=== PATIENT | female | born 1965 | race Caucasian/White ===

== ENCOUNTER 2017-09-01 07:10 | Inpatient (IN) | payer OTHER ==
[2017-09-01] VITALS (7 sets, daily range): BP systolic 92–126; BP diastolic 58–67; PULSE 79–114; TEMP 98–98.5
[~2017-09-01] VITALS: Ht 160 cm; Wt 36.1 kg
[2017-09-01] MEDS ORDERED: [UNRECOGNIZED DRUG - OTHER] PO (07:21)
[2017-09-01 07:48] LABS: HEMATOCRIT 45.3 % (37.0-47.0); HEMOGLOBIN 15.4 g/dl (12.5-16.0); MEAN CELL VOLUME 87 fl (80.0-100.0); MEAN CORPUSCULAR HEMOGLOBIN 30 pg (27.0-31.0); MEAN CORPUSCULAR HGB CONC 34 g/dl (33.0-37.0); MEAN PLATELET VOLUME 9.3 fl (7.4-10.4); PLATELET COUNT 291 K/mm3 (130-400); RED BLOOD COUNT 5.22 M/mm3 (4.10-5.30); REDCELL DISTRIBUTION WIDTH-CV 13.5 % (11.5-14.5)
[2017-09-01 07:51] LABS: ALANINE AMINOTRANSFERASE 22 U/L (9-52); ALBUMIN 4.1 gm/dL (3.5-5.0); ALKALINE PHOSPHATASE 96 U/L (50-136); ANION GAP 14 mmol/L (7-16); AST,SGOT 22 U/L (15-37); BILIRUBIN,TOTAL 0.6 mg/dL (0.0-1.0); BLOOD UREA NITROGEN 15 mg/dL (7-17); CALCIUM 9.8 mg/dL (8.4-10.2); CARBON DIOXIDE 24 mmol/L (22-30); CHLORIDE 98 mmol/L (98-107); CREATININE, serum 0.92 mg/dL (0.52-1.25); GLUCOSE 137 mg/dL (74-106); LIPASE 14 U/L (23-300); POTASSIUM 4.7 mmol/L (3.4-5.0); SODIUM 136 mmol/L (137-145); TOTAL PROTEIN 8.2 gm/dL (6.4-8.2)
[2017-09-01 08:04] LABS: TROPONIN-I < 0.012 ng/mL (0.000-0.034)
[2017-09-01 08:16] LABS: BAND 9 % (0-10); EOSINOPHIL 1 % (0-4); LYMPHOCYTE 12 % (20.0-51.0); NEUTROPHILS 70 % (42.0-75.2)
[2017-09-01 08:17] LABS: PLATELET ESTIMATE NORMAL (NORMAL)
[2017-09-01 08:22] LABS: C-REACTIVE PROTEIN 20.3 mg/dL (0.0-0.9)
[2017-09-01 10:13] LABS: ARTERIAL BLD GAS O2 SATURATION 96.2 % (92-100); ARTERIAL BLD GAS TCO2 CT 21.7; ARTERIAL BLOOD GAS HCO3 20.7 meq/L (22-26); ARTERIAL BLOOD GAS PO2 80.7 mmHg (80-100); ARTERIAL BLOOD GAS pH 7.42 (7.35-7.45)
[2017-09-01 15:22] LABS: PH 6 (5-8); SQUAMOUS EPITHELIAL 0-2 /hpf; URINE APPEARANCE Clear; URINE BACTERIA None Seen /hpf; URINE BILIRUBIN Negative (NEGATIVE); URINE BLOOD 1+ (NEGATIVE); URINE COLOR Yellow; URINE GLUCOSE 1+ (NEGATIVE); URINE KETONE Negative (NEGATIVE); URINE LEUKOCYTE ESTERASE Negative (NEGATIVE); URINE NITRATE Negative (NEGATIVE); URINE PROTEIN(semi-quant) Negative (NEGATIVE); URINE RBC None Seen /hpf; URINE UROBILINOGEN Negative (NEGATIVE)
[2017-09-01 15:29] LABS: COLLECTION METHOD CLEAN CATCH
[2017-09-02 03:54] VITALS: BP 128/65; PULSE 84; TEMP 98.4
[2017-09-02] MEDS ORDERED: ASPIRIN 81M81 MG/TA2 PO (07:39)
[2017-09-02 07:40] VITALS: BP 132/70; PULSE 78; TEMP 98.1
[2017-09-02 07:40] LABS: BASO % 0.2 % (0.0-2.0); EOS # 0.1 (0.0-0.7); EOS % 0.8 % (0-4.0); GRAN # 13.5 (1.4-6.5); GRAN % 77.6 % (42.2-75.2); LYMPH # 2.2 (1.2-3.4); LYMPH % 12.5 % (20.0-51.0); MEAN CELL VOLUME 89 fl (80.0-100.0); MEAN CORPUSCULAR HGB CONC 33 g/dl (33.0-37.0); MEAN PLATELET VOLUME 9.7 fl (7.4-10.4); MONO # 1.5 (0.1-0.6); MONO % 8.4 % (1.7-9.3); PLATELET COUNT 239 K/mm3 (130-400); RED BLOOD COUNT 3.78 M/mm3 (4.10-5.30); REDCELL DISTRIBUTION WIDTH-CV 13.9 % (11.5-14.5)
[2017-09-02 07:45] LABS: HEMATOCRIT 33.8 % (37.0-47.0); HEMOGLOBIN 11.2 g/dl (12.5-16.0); MEAN CORPUSCULAR HEMOGLOBIN 30 pg (27.0-31.0)
[2017-09-02 07:54] LABS: CALCIUM 8.5 mg/dL (8.4-10.2); CREATININE, serum 0.69 mg/dL (0.52-1.25); POTASSIUM 3.9 mmol/L (3.4-5.0)
[2017-09-02 11:37] VITALS: BP 116/62; PULSE 112; TEMP 98.2
[2017-09-02 15:32] VITALS: BP 127/68; PULSE 87; TEMP 98.2
[2017-09-02 18:43] VITALS: BP 122/69; PULSE 91; TEMP 98.3
[2017-09-03 03:29] VITALS: BP 122/67; PULSE 86; TEMP 97.9
[2017-09-03 07:58] LABS: BASO % 0.1 % (0.0-2.0); EOS % 0.3 % (0-4.0); GRAN # 10.3 (1.4-6.5); GRAN % 76.3 % (42.2-75.2); HEMOGLOBIN 11.7 g/dl (12.5-16.0); LYMPH # 2.1 (1.2-3.4); LYMPH % 15.8 % (20.0-51.0); MEAN CELL VOLUME 89 fl (80.0-100.0); MEAN CORPUSCULAR HEMOGLOBIN 29 pg (27.0-31.0); MEAN CORPUSCULAR HGB CONC 33 g/dl (33.0-37.0); MEAN PLATELET VOLUME 9.7 fl (7.4-10.4); MONO # 0.9 (0.1-0.6); MONO % 6.9 % (1.7-9.3); PLATELET COUNT 269 K/mm3 (130-400); RED BLOOD COUNT 4.03 M/mm3 (4.10-5.30)
[2017-09-03 07:59] LABS: HEMATOCRIT 35.9 % (37.0-47.0)
[2017-09-03 08:02] VITALS: BP 119/62; PULSE 87; TEMP 98.8
[2017-09-03] MEDS ORDERED: PROAIR HFA0.09 MG/AC IH (08:10)
[2017-09-03] MEDS ORDERED: LEVAQUIN 5500 MG/TA1 PO (08:13)
[2017-09-03] MEDS ORDERED: MEDROL 4MG DOSPA4 MG PO (09:21)
== END 2017-09-03 11:45 | disposition home or self-care (01) | DRG 191 ==
LOC: COL.ER 07:10 → MEDICAL 09:22 → COL.ER 09:22 → MEDICAL 12:00
PROVIDERS: Emergency Medicine; Physician Assistant
DX: J44.9 Chronic obstructive pulmonary disease, unspecified (principal); E87.1 Hypo-osmolality and hyponatremia; F17.210 Nicotine dependence, cigarettes, uncomplicated; R00.0 Tachycardia, unspecified; D72.829 Elevated white blood cell count, unspecified
CPT/HCPCS: 99222-AI; 99232-AI; 99239; J1956; J2930; J7030; J7512; Q9967